=== PATIENT | female | born 1970 | race Caucasian/White ===

== ENCOUNTER 2023-10-05 07:55 | Day surgery (SDC) | payer OTHER, MEDICAID ==
[~2023-10-05] VITALS: Ht 167.6 cm; Wt 86.2 kg
[~2023-10-05 07:55] MED LIST: ceFAZolin SODIUM 2 GM in D5W 50 ML IV ONE
[2023-10-05] MEDS ORDERED: fentaNYL CITRATE/PF 100 MCG/2 ML AMP ONE (10:40)
[2023-10-05] MEDS ORDERED: SEVOFLURANE 15 MIN GAS INH ONE (10:40)
[2023-10-05] MEDS ORDERED: LR 1,000 ML IV.SOLN IV ONE (10:40)
[2023-10-05] MEDS ORDERED: KETOROLAC TROMETHAMINE 30 MG VIAL ONE (10:40)
[2023-10-05] MEDS ORDERED: PROPOFOL 200MG/ 20ML VIAL (DIPRIVAN) IV ONE (10:40)
[2023-10-05] MEDS ORDERED: MIDAZOLAM HCL 2 MG/2 ML VIAL (VERSED) ONE (10:40)
[2023-10-05] MEDS ORDERED: LIDOCAINE MPF 2% 20 MG/1 ML, 5 ML VIAL INH ONE (10:40)
[2023-10-05] MEDS ORDERED: ONDANSETRON HCL 4 MG/2 ML VIAL ONE (10:40)
[2023-10-05] MEDS ORDERED: DEXAMETHASONE SOD PHOSPHATE 4 MG/ML VIAL ONE (10:40)
[2023-10-05] MEDS ORDERED: ACETAMINOPHEN I.V. 1000 MG 100 ML IV ONE (11:33)
[2023-10-05 11:40] VITALS: O2SAT 98
[2023-10-05] MEDS ORDERED: MIDAZOLAM HCL 2 MG/2 ML VIAL (VERSED) IVP PRN (11:45)
[2023-10-05] MEDS ORDERED: LR 1,000 ML IV SCH (11:45)
[2023-10-05] MEDS ORDERED: METOCLOPRAMIDE HCL 10 MG/2 ML VIAL IVP PRN (11:45)
[2023-10-05] MEDS ORDERED: MEPERIDINE HCL/PF 25 MG/ML DISP.SYRIN IVP PRN (11:45)
[2023-10-05] MEDS ORDERED: HYDROmorphone 1 MG/ML INJ. CARTRIDGE IVP PRN (11:45)
[2023-10-05] MEDS ORDERED: hydrALAZINE HCL 20 MG/ML VIAL IVP PRN (11:45)
[2023-10-05] MEDS ORDERED: LABETALOL 100 MG/ 20ML VIAL IVP PRN (11:45)
[2023-10-05] MEDS ORDERED: HYDROmorphone 1 MG/ML INJ. CARTRIDGE ONE ×2 (12:16→13:40)
[2023-10-05] MEDS: HYDROmorphone 1 MG/ML INJ. CARTRIDGE IVP PRN (12:18)
[2023-10-05] MEDS ORDERED: hydrALAZINE HCL 20 MG/ML VIAL ONE (12:27)
[2023-10-05 16:02] VITALS: BP_SYST 168; PULSE 100; RESP 18; TEMP 97.9
== END 2023-10-05 15:05 | disposition home or self-care (01) ==
LOC: SDS 07:55 → SMU 08:03 → SDS 15:05
PROVIDERS: ATTEND Orthopaedic Surgery Sports Medicine
DX: S82.62XA Displaced fracture of lateral malleolus of left fibula, initial encounter for closed fracture (principal); I10 Essential (primary) hypertension; K21.9 Gastro-esophageal reflux disease without esophagitis; F32.A Depression, unspecified; E03.9 Hypothyroidism, unspecified; J45.909 Unspecified asthma, uncomplicated; Z90.49 Acquired absence of other specified parts of digestive tract; Z90.710 Acquired absence of both cervix and uterus; Z98.890 Other specified postprocedural states; Z79.890 Hormone replacement therapy; Z79.899 Other long term (current) drug therapy; X58.XXXA Exposure to other specified factors, initial encounter; Y93.89 Activity, other specified; Y92.89 Other specified places as the place of occurrence of the external cause; Y99.8 Other external cause status
CPT/HCPCS: 27792; 29515; 87081; C1713 ×6; J1100; J0360; J1885; J3465; J2405; J2704; J3010; J1170; J7060; J7120; J0131